=== PATIENT | male | born 1990 | race Hispanic/Latino ===

== ENCOUNTER 2016-03-28 11:32 | Emergency (ER) | payer OTHER ==
[~2016-03-28] VITALS: Ht 165.1 cm; Wt 59.0 kg
[2016-03-28 11:44] VITALS: BP 116/64
--- NOTE | 2016-03-28 12:13 | ED UPPER/LOWER EXTREMITY COMPL ---
History of Present Illness General Chief Complaint: Shoulder Injury Stated Complaint: RIGHT SHOULDER SPRAIN? Source: patient Exam Limitations: no limitations Vital Signs & Intake/Output Vital Signs & Intake/Output Vital Signs Date Time Temp Pulse Resp B/P Pulse O2 O2 Flow FiO2 Ox Delivery Rate 03/28 1144 98.9 70 20 116/64 97 Room Air Allergies Coded Allergies: No Known Allergies (03/28/16) Reconcile Medications Meloxicam (Mobic) 15 MG TABLET 1 TAB PO DAILY PRN PAIN Triage Note: PT TO ED C/O SPRAINED RIGHT SHOULDER. STATES HE WAS WRESTLING YESTERDAY, IT HURT YESTERDAY, BUT WOKE UP WITH WORSENING PAIN. PT USED ICY HOT CREAM WITH NO RELIEF. HAS NOT TRIED OTC MEDS. Triage Nurses Notes Reviewed? yes Onset: Gradual Duration: constant Timing: recent history Severity: moderate Severity Numbers: 5 Method of Injury: sports injury HPI: PT is a 25-year-old male with an unremarkable past medical history which yesterday he states that he was wrestling with a friend in which she denies any acute onset of pain to the right shoulder however he noted approximately 30 minutes later a gradual onset of right-sided generalized shoulder pain. Patient states that movement makes worse. Patient tried ibuprofen yesterday with no relief of symptoms. Denies any neck pain elbow pain extremity paresthesia or weakness. Patient states that lifting his arm over his head makes worse however he can do this (CYNTHIA PARDO) Past History Travel History Traveled to [place] past 21 day No Medical History Any Pertinent Medical History? none Surgical History Surgical History: non-contributory Psychosocial History What is your primary language Qatari Tobacco Use: Current Daily Use Daily Tobacco Use Amount/Type: => 5 Cigarettes daily ETOH Use: occasional use Illicit Drug Use: denies illicit drug use Family History Hx Contributory? No (CYNTHIA PARDO) Review of Systems Review of Systems Constitutional: Reports: no symptoms. EENTM: Reports: no symptoms. Respiratory: Reports: no symptoms. Cardiovascular: Reports: no symptoms. Gastrointestinal/Abdominal: Reports: no symptoms. Genitourinary: Reports: no symptoms. Musculoskeletal: Reports: see HPI, joint pain, muscle pain. Skin: Reports: no symptoms. Neurological/Psychological: Reports: no symptoms. Hematologic/Endocrine: Reports: no symptoms. Immunological: Reports: no symptoms. All Other Systems: Reviewed and Negative (CYNTHIA PARDO) Physical Exam Physical Exam General Appearance: no apparent distress, alert, comfortable Elbow Right: normal range of motion, normal inspection Hand Right: normal inspection, normal range of motion Neurologic/Tendon: normal sensation, normal motor functions, normal tendon functions, responds to pain, no evidence tendon injury, no pulse deficit Comments: Well-developed well-nourished person in no acute distress HEENT: Normal EENT exam, Neck: Supple, no lymphadenopathy, normal range of motion without pain or tenderness Back: Nontender, no CVA tenderness Cardiovascular: Regular rate and rhythms no murmurs rubs or gallops, normal JVP Respiratory: Chest nontender. No respiratory distress.breath sounds clear to auscultation bilaterally Abdomen: Soft, nontender nondistended, no appreciable organomegaly. Normal bowel sounds. No ascites Extremity: No edema, no calf tenderness to palpation, normal and equal pulses. Right shoulder normal inspection anterior glenohumeral point tenderness noted, AC joint tenderness no clavicular tenderness Full active range of motion pain elicited 90 above shoulder flexion and abduction 5 the 5 resisted range of motion noted with pain with flexion abduction and internal rotation Pain elicited with empty can test Right upper extremity dermatomes intact radial pulse +2 Neuro: Alert oriented, motor sensory normal, Skin: No appreciable rash on exposed skin, skin is warm and dry. Psych: Mood and affect is normal, memory and judgment is normal. (CYNTHIA PARDO) Progress Differential Diagnosis: arterial insufficiency, compartment syndrome, contusion, dislocation, DVT, fracture, gout, septic arthritis, sprain, tendon injury Plan of Care: Patient was neurovascularly intact Denies any mechanism of injury or trauma. At this time patient does not require emergent x-rays for concerns of soft tissue muscular or shoulder strain. Patient had full range of motion (CYNTHIA PARDO) Departure Departure Disposition: HOME OR SELF CARE Condition: Stable Clinical Impression Primary Impression: Right shoulder strain Referrals: PATIENT HAS NO PRIMARY CARE DR (PCP/Family) Additional Instructions: As discussed you have given [facility] practice referral number to call tomorrow for primary care doctor establishment, please call tomorrow to make an appointment. Begin icing the area directly 20 minutes every 2 hours. Begin the prescription of MELOXICAM for pain and inflammation. If symptoms worsen return to emergency room. Departure Forms: Customer Survey General Discharge Information Prescriptions: Current Visit Scripts Meloxicam (Mobic) 1 TAB PO DAILY PRN PAIN #15 TAB (CYNTHIA PARDO) PA/COMPLAINT ANALYST Co-Sign Statement Statement: ED Attending supervision documentation- [] I saw and evaluated the patient. I have also reviewed all the pertinent lab results and diagnostic results. I agree with the findings and the plan of care as documented in the PA's/COMPLAINT ANALYST's documentation. x I have reviewed the ED Record and agree with the PA's/COMPLAINT ANALYST's documentation. [] Additions or exceptions (if any) to the PAs/COMPLAINT ANALYST's note and plan are summarized below: [] (ALINA BURRELL,MARISELA)
[2016-03-28] MEDS ORDERED: MOBIC15 M1 PO (12:34)
== END 2016-03-28 12:38 ==
LOC: ERH 11:32
DX: S46.911A Strain of unspecified muscle, fascia and tendon at shoulder and upper arm level, right arm, initial encounter (principal); X50.9XXA Other and unspecified overexertion or strenuous movements or postures, initial encounter; Y93.83 Activity, rough housing and horseplay

== ENCOUNTER 2016-07-26 20:42 | Emergency (ER) | payer OTHER ==
[~2016-07-26 20:42] MED LIST: MOBIC15 M1 PO
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
[2016-07-26] MEDS ORDERED: IBUPROFEN800 M1 PO (22:46)
[2016-07-26] MEDS ORDERED: CYCLOBENZAPRINE10 M1 PO (22:46)
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
[2016-07-26 23:06] VITALS: BP 105/69
== END 2016-07-26 23:07 ==
LOC: ERH 20:42
DX: S83.91XA Sprain of unspecified site of right knee, initial encounter (principal); S39.012A Strain of muscle, fascia and tendon of lower back, initial encounter; V03.10XA Pedestrian on foot injured in collision with car, pick-up truck or van in traffic accident, initial encounter; Y93.01 Activity, walking, marching and hiking; Y92.410 Unspecified street and highway as the place of occurrence of the external cause
CPT/HCPCS: 72220; 73560-RT